=== PATIENT | male | born 1930 | race Caucasian/White ===

== ENCOUNTER 2016-08-12 13:02 | Emergency (ER) | payer MEDICARE ==
[~2016-08-12] VITALS: Ht 182.9 cm; Wt 86.2 kg
--- NOTE | 2016-08-12 13:06 | Emergency Room Report ---
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 Clinical Suspician of Infection? Mental Status: Sepsis Risk: Have you (or family members/close friends) recently traveled outside the [place]? If Yes, where/when: Have you had exposure to infectious disease within the past month? TB? Other? Specify: Source patient, RN notes reviewed Exam Limitations no limitations Comment pT started having Chest pain at [facility] that he rated 10/10. 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 He has not had any vomiting or diarrhea but he does have a cough and a low grade temp as well. 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 Cardiac Chest Pain Chest pain indicative of cardiac Yes ALLERGIES Coded Allergies: No Known Allergies (03/21/16) History Medical History General Angina: No ME: No Hypertension? No Hyperlipidemia? No COPD? No Asthma? No CVA? No Seizures? No Diabetes? No GB Disease: Yes MRSA? No TB? No Cancer? Yes Site: [facility] Immunization Hx DT/Tetanus > 10 YRS Flu THIS YR Pneumonia 1-4 YRS Surgical Hx Previous Surgery?Y LASER BLADDER GALL BLADDER RT [facility] Prostate Procedures RT ROTATOR CUFF RT ELBOW Bovine heart valve put in, Left adrenal gland removed in 2016 Family History Family Hx Diabetes No CAD No Hypertension No Hyperlipidemia No Cancer Yes TB No Social History Alcohol Alcohol: No Review of Systems All Other Systems Reviewed and Negative Constitutional see HPI Cardiovascular see HPI Gastrointestinal see HPI Physical Exam Vital Signs Vital Signs Date Time Temp Pulse Resp B/P Pulse O2 O2 Flow FiO2 Ox Delivery Rate 08/12 1416 68 16 118/62 97 08/12 1329 78 16 107/64 97 08/12 1322 16 08/12 1305 99.2 79 18 122/67 97 General Appearance mild distress Respiratory Status No: respiratory distress. Lung Sounds bilateral: normal breath sounds. 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 Yes Nathan was queried for this patient? Yes Reference #: [id number] Results/Orders Laboratory Tests 08/12/16 1420: ABG pH 7.43, ABG pCO2 (Temp Corrct 34.3 L, ABG pO2 (Temp Correct 75.7 L, ABG HCO3 22.2, ABG Total CO2 23.3, ABG O2 Sat (Calculated) 95.5, ABG Base Excess - 2.1, Lei Test ACCEPTABLE, Blood Gas Comments LEFT RADIAL 08/12/16 1343: Lactic Acid 0.7 08/12/16 1320: Influenza Type A Ag NOT DETECTED, Influenza Type B Ag NOT DETECTED 08/12/16 1300: Sodium 139, Potassium 4.2, Chloride 105, Carbon Dioxide 27, BUN 18, Creatinine 1.2, Estimated Creat Clear 56, Estimated GFR (MDRD) 58, Glucose 93, Calcium 8.4 L, Total Bilirubin 0.5, AST 14 L, ALT 16, Alkaline Phosphatase 107, Creatine Kinase 36 L, CK-MB (CK-2) Rel Index 2.2, CK and CKMB Interp 0.8, Troponin I 0.03, Total Protein 6.8, Albumin 3.0 L, Globulin 3.8 H, Albumin/Globulin Ratio 0.8 L, WBC 4.9, RBC 3.62 L, Hgb 11.1 L, Hct 34.8 L, MCV 96.3, RDW 16.5, Plt Count 223, MPV 6.3 L, Gran % 68.2, Gran # 3.4, Lymphocytes % 24.0, Monocytes % 5.3, Eosinophils % 2.1, Basophils % 0.4, Lymphocytes # 1.2, Monocytes # 0.3, Eosinophils # 0.1, Basophils # 0.0, PUBS MCHC 32.2, MCH 31.0 Current Medication Orders Sig/Alise Start time Last Medication Dose Route Stop Time Status Admin Levofloxacin/Dextrose 100 ML .STK-MED ONE 08/12 1448 DC IV Levofloxacin/Dextrose 100 ML ONCE ONE 08/12 1345 DCr 08/12 IV 08/12 1444 1451 Miscellaneous 1 EACH CONSULT PHARMACY 08/12 1345 AC Information * 08/13 0143 Piperacillin Sod/ 3.375 GM ONCE ONE 08/12 1345 DC Tazobactam Sod IV 08/12 1414 Sodium Chloride 50 ML Nitroglycerin 0.4 MG [id number] PRN 08/12 1330 AC SL Morphine Sulfate 0 .STK-MED ONE 08/12 1319 DC .ROUTE Promethazine HCl 0 .STK-MED ONE 08/12 1319 DC .ROUTE Morphine Sulfate 4 MG ONCE ONE 08/12 1315 DC 08/12 IV 08/12 1316 1322 Promethazine HCl 12.5 MG ONCE ONE 08/12 1315 DC 08/12 IV 08/12 1316 1321 Sodium Chloride 10 ML PRN PRN 08/12 1315 AC IV 08/13 1306 Sodium Chloride 25 ML ONCE ONE 08/12 1315 DC IV 08/12 1329 Nitroglycerin 0 .STK-MED ONE 08/12 1310 DC SL Orders Procedure Date/time Status DIET-NOTHING BY MOUTH 08/12 D Active ARTERIAL BLOOD GAS REQUEST 08/12 1344 Active CULTURE, THROAT 08/12 1320 Active CULTURE, BLOOD 08/[address] ABD/PELVIS REQ 08/12 1316 Complete LACTIC ACID 08/12 1315 Complete CULTURE, BLOOD 08/12 1314 Active URINALYSIS/COMPLETE 08/12 1314 Active STREP SCREEN THROAT 08/12 1314 Complete INFLUENZA A&B ANTIGENS 08/12 1314 Complete ELECTROCARDIOGRAM REQUEST 08/12 1306 Active CHEST-PORTABLE 08/12 1306 Active IV SALINE LOCK 08/12 1306 Active CBC WITH AUTO DIFF 08/12 1306 Complete CARDIAC ENZYMES 08/12 1306 Complete CHEM 12 PROFILE 08/12 1306 Complete 12 LEAD EKG-TEZ (INITIAL) 08/12 1300 Active CM/EKG CM/EKG EKG rate (76), NSR, non-spec. ST/Twave chgs, ? old septal infarct pattern Departure Departure Time of Disposition 1506 Disposition DC Home or Self Care(routine) Clinical Impression Primary Impression: RML pneumonia Qualifiers: Pneumonia type: due to unspecified organism Qualified Code: J18.9 - Pneumonia, unspecified organism Secondary Impressions: Abdominal pain Qualifiers: Abdominal location: left lower quadrant Qualified Code: R10.32 - Left lower quadrant pain Condition STABLE Referrals Jere Noble MD (Family): 3 Days-Call Office Patient Instructions DI for Abdominal Pain-Adult, Pneumonia-Adult Additional Instructions Spoke with Dr. Haas and pt. being sent back to [facility] to continue IV Levaquin [address] Haas will discuss care with Dr. Noble on Sunday after they have had a chance to review his labs and xrays. Discharge Counseling Counseled pt/family regarding diagnosis, test results, medications/RX, home care, follow up needs ED Critical Care Critical Care No If Critical Care minutes are documented, the time involved in the performance of seperately reportable procedures was not counted toward critical care time documented. I directly delivered medical care to this critically ill and/or injured patient. Timely evaluation and treatment was necessary to address the significant organ system(s) dysfunction present in this patient. at 1625
[2016-08-12 13:18] LABS: LYMPH # 1.2 K/mm3 (0.7-4.5)
[2016-08-12 13:19] LABS: HEMOGLOBIN 11.1 g/dL (14.1-18.0)
[2016-08-12 13:29] LABS: STREP SCREEN (RAPID) NEGATIVE
[2016-08-12 14:34] LABS: ALLEN'S TEST ACCEPTABLE; ARTERIAL ABE -2.1 MMOL/L (-2.4-+2.3); ARTERIAL PO2 75.7 MMHG (80-100); ARTERIAL TCO2 23.3 MMOL/L (23-27); OXYGEN ROOM AIR
--- NOTE | 2016-08-12 14:39 | RADIOLOGY REPORT PS360 ---
CT ABD PELVIS W/O CONTRAST CLINICAL INDICATION: Abdominal pain, recent surgery ABD PAIN RECENT ABD SURGERY (HAD MASS REMOVED) ORDERING PHYSICIAN: Anjali Uribe MD PATIENT AGE: 85 years COMPARISON: 03/21/2016 TECHNIQUE: Axial images obtained with sagittal and coronal reformats. PROCEDURE: Oral Contrast: None IV Contrast: None . FINDINGS: Lung base images show an aortic stent graft. There are trace bilateral effusions with dependent changes in the lung bases. Complex mass is present in the left adrenal region. There is history of recent adrenal surgery. There is however residual soft tissue mass in the adrenal bed on the left measuring 7.4 x 6.1 cm. Inferior to the mass is heterogeneous density with some scattered gas. Postsurgical hematoma/abscess is considered. This area measures approximately 6 x 4.8 cm A left-sided pelvic kidney is once again noted with some mild stranding of the left perinephric renal fat which extends into the pelvis. 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 The right adrenal gland is unremarkable. No intestinal obstruction or free air is evident. Small amount gas is present in the urinary bladder. IMPRESSION: 1. There is a residual left adrenal mass with surgical clips along the infra aspect of the mass. Abnormal soft tissue density projects from the in for aspect of the mass and could be related to hematoma and/or abscess as there is some gas within this area. 2. Trace bilateral effusions. 3. Left-sided pelvic kidney with some stranding of the perinephric renal fat as before
--- NOTE | 2016-08-12 16:25 | RADIOLOGY REPORT PS360 ---
CHEST-PORTABLE HISTORY: CHEST PAIN ORDERING PHYSICIAN: Anjali Uribe MD PATIENT AGE: 85 years COMPARISON: None available FINDINGS: Cardiomegaly with mild pulmonary venous congestion. The mediastinum is prominent probably related to tortuous/ectatic aorta. Patient has had prior TAVR.. The lungs are clear without infiltrates, suspicious nodules, or pleural effusions. No acute bony abnormalities. IMPRESSION: Mild CHF
[2016-08-12 18:36] VITALS: BP 112/76
== END 2016-08-12 18:36 | disposition home or self-care (01) ==
LOC: ER 13:02
PROVIDERS: General Practice
DX: J18.9 Pneumonia, unspecified organism (principal); R10.32 Left lower quadrant pain
CPT/HCPCS: J2543